=== PATIENT | male | born 1965 | race African-American/Black ===

== ENCOUNTER 2022-01-07 09:48 | Inpatient (IN) | payer OTHER ==
[2022-01-07 10:44] VITALS: BMI 27.5
[2022-01-07] MEDS ORDERED: MAGNESIUM HYDROX 2400MG/30ML ORAL SUSPENSION 30 ML CUP PO PRN (11:21)
[2022-01-07] MEDS ORDERED: ACETAMINOPHEN 325 MG TABLET (FP) PO PRN ×2 (11:21)
[2022-01-07] MEDS ORDERED: MAGNESIUM CITRATE 300 ML BOTTLE PO PRN (11:21)
[2022-01-07] MEDS ORDERED: MENTHOL/PHENOL 1 EACH UD MM PRN (11:21)
[2022-01-07] MEDS ORDERED: MAG HYDROX/AL HYDROX/SIMETH 30 ML UNIT-DOSE CUP PO PRN (11:21)
[2022-01-07] MEDS ORDERED: ONDANSETRON *ODT* 4 MG TABLET SL PRN (11:21)
[2022-01-07] MEDS ORDERED: IBUPROFEN 400 MG TABLET (FP) PO PRN (11:21)
[2022-01-07] MEDS ORDERED: BISMUTH SUBSALICYLATE 262 MG/15 ML BTL PO PRN (11:21)
[2022-01-07] MEDS ORDERED: METHOCARBAMOL 500 MG TABLET PO PRN (11:21)
[2022-01-07] MEDS: NICOTINE 14 MG/24 HOURS TOPICAL PATCH TD SCH (12:55)
[2022-01-07] MEDS: PRENATAL VITAMINS W/ FOLIC ACID TABLET (FP) PO SCH (12:55)
[2022-01-07 14:03] LABS: MCH 32.6 pg (25.7-33.7); MCHC 33.4 g/dl (32.0-35.9); MEAN CELL VOLUME 97.8 fl (80-96); MEAN PLT VOLUME 8.3 fl (7.5-11.1); PLATELET COUNT 168 10^3/uL (134-434); RBC 3.99 M/mm3 (4.00-5.60); RDW 14.7 % (11.9-15.9); WHITE BLOOD COUNT 4.5 K/mm3 (4.0-10.0)
[2022-01-07 14:09] LABS: BLOOD UREA NITROGEN 14.7 mg/dL (7-18)
[2022-01-07 14:13] LABS: CREATININE 1.3 mg/dL (0.55-1.3); TOT PROT 6.8 g/dl (6.4-8.2)
[2022-01-07] MEDS: hydrOXYzine PAMOATE 25 MG CAPSULE (FP) PO SCH ×3 (15:13→22:58)
[2022-01-07] MEDS: MELATONIN 5 MG TABLETS PO SCH (22:57)
[2022-01-07] MEDS: THIAMINE HCL 100 MG TABLET (FP) PO SCH (22:57)
[2022-01-08] MEDS: hydrOXYzine PAMOATE 25 MG CAPSULE (FP) PO SCH ×5 (06:35→22:27)
[2022-01-08] MEDS ORDERED: diazePAM 5 MG TABLET PO PRN (09:55)
[2022-01-08] MEDS: PRENATAL VITAMINS W/ FOLIC ACID TABLET (FP) PO SCH (10:30)
[2022-01-08] MEDS: NICOTINE 14 MG/24 HOURS TOPICAL PATCH TD SCH (10:31)
[2022-01-08] MEDS: BUPRENORPHINE/NALOXONE 8 MG/2 MG FILM PACKET SL SCH ×2 (10:32→22:39)
[2022-01-08] MEDS: diazePAM 5 MG TABLET PO SCH ×3 (10:33→22:27)
[2022-01-08] MEDS: MELATONIN 5 MG TABLETS PO SCH (22:27)
[2022-01-08] MEDS: THIAMINE HCL 100 MG TABLET (FP) PO SCH (22:27)
[2022-01-09] MEDS: hydrOXYzine PAMOATE 25 MG CAPSULE (FP) PO SCH ×5 (05:21→22:13)
[2022-01-09] MEDS: diazePAM 5 MG TABLET PO SCH ×4 (05:21→22:14)
[2022-01-09] MEDS: PRENATAL VITAMINS W/ FOLIC ACID TABLET (FP) PO SCH (10:33)
[2022-01-09] MEDS: BUPRENORPHINE/NALOXONE 8 MG/2 MG FILM PACKET SL SCH ×2 (10:33→22:14)
[2022-01-09] MEDS: NICOTINE 14 MG/24 HOURS TOPICAL PATCH TD SCH (13:49)
[2022-01-09] MEDS: NICOTINE 10 MG CARTRIDGE (INHALER) IH PRN (14:55)
[2022-01-09] MEDS: MELATONIN 5 MG TABLETS PO SCH (22:13)
[2022-01-09] MEDS: THIAMINE HCL 100 MG TABLET (FP) PO SCH (22:13)
[2022-01-10] MEDS: diazePAM 5 MG TABLET PO SCH ×3 (05:20→23:13)
[2022-01-10] MEDS: hydrOXYzine PAMOATE 25 MG CAPSULE (FP) PO SCH ×5 (05:20→23:14)
[2022-01-10] MEDS: BUPRENORPHINE/NALOXONE 8 MG/2 MG FILM PACKET SL SCH ×2 (10:35→23:12)
[2022-01-10] MEDS: PRENATAL VITAMINS W/ FOLIC ACID TABLET (FP) PO SCH (10:35)
[2022-01-10] MEDS: NICOTINE 10 MG CARTRIDGE (INHALER) IH PRN ×2 (10:37→18:14)
[2022-01-10] MEDS: NICOTINE 14 MG/24 HOURS TOPICAL PATCH TD SCH (10:51)
[2022-01-10] MEDS ORDERED: MIRTAZAPINE 15 MG TABLET (FP) PO SCH (22:00)
[2022-01-10] MEDS: THIAMINE HCL 100 MG TABLET (FP) PO SCH (23:13)
[2022-01-10] MEDS: MELATONIN 5 MG TABLETS PO SCH (23:14)
[2022-01-11] MEDS ORDERED: diazePAM 5 MG TABLET PO SCH (06:00)
[2022-01-11] MEDS: hydrOXYzine PAMOATE 25 MG CAPSULE (FP) PO SCH ×2 (06:22→10:47)
[2022-01-11 08:49] VITALS: BP 130/72; PULSE 81; TEMP 97.2
[2022-01-11] MEDS ORDERED: MODERNA COVID-19 VACC,MRNA/PF 50 MCG/0.25 ML EACH IM ONE (09:41)
[2022-01-11] MEDS: PRENATAL VITAMINS W/ FOLIC ACID TABLET (FP) PO SCH (10:47)
[2022-01-11] MEDS: BUPRENORPHINE/NALOXONE 8 MG/2 MG FILM PACKET SL SCH (10:48)
[2022-01-11] MEDS: NICOTINE 14 MG/24 HOURS TOPICAL PATCH TD SCH (10:48)
[2022-01-11] MEDS ORDERED: MODERNA COVID-19 VACC,MRNA/PF 100 MCG/0.5 ML IM ONE (12:00)
[2022-01-12] MEDS ORDERED: diazePAM 5 MG TABLET PO ONE (06:00)
[2022-01-12 14:11] LABS: SARS-CoV-2 NAA Not Detected (Not Detected)
== END 2022-01-11 11:47 | disposition home or self-care (01) | DRG 897 ==
LOC: YASAS 09:48 → UNDOADMIN 11:50 → Y3N 11:50
PROVIDERS: ADMIT Allergy & Immunology; ATTEND Allergy & Immunology
PROC: HZ2ZZZZ Detoxification Services for Substance Abuse Treatment (ICD-10-PCS; principal; 2022-01-07)
DX: F11.23 Opioid dependence with withdrawal (principal); F14.20 Cocaine dependence, uncomplicated; F13.230 Sedative, hypnotic or anxiolytic dependence with withdrawal, uncomplicated; F17.210 Nicotine dependence, cigarettes, uncomplicated; F19.24 Other psychoactive substance dependence with psychoactive substance-induced mood disorder; F32.A Depression, unspecified; G47.00 Insomnia, unspecified
CPT/HCPCS: 0012A; 36415; 71045-TC-FY; 80053; 85027; 86780; 91301; 93005; 93010; C9803; U0003; U0005

== ENCOUNTER 2024-03-21 09:31 | Emergency (ER) | payer OTHER ==
[2024-03-21 09:40] VITALS: BP 129/86; PULSE 62; RESP 18; TEMP 98.4; BMI 27.8
[2024-03-21] MEDS ORDERED: KETOROLAC TROMETHAMINE 30 MG/1 ML VIAL ONE (10:03)
[2024-03-21] MEDS ORDERED: ACETAMINOPHEN 500 MG TABLET (FP) ONE (10:03)
[2024-03-21] MEDS: KETOROLAC TROMETHAMINE 30 MG/1 ML VIAL IM ONE (10:10)
[2024-03-21] MEDS: ACETAMINOPHEN 500 MG TABLET (FP) PO ONE (10:10)
== END 2024-03-21 10:14 | disposition home or self-care (01) ==
LOC: JERFT 09:31 → JER 09:31 → JERFT 10:14
PROC: 3E0233Z Introduction of Anti-inflammatory into Muscle, Percutaneous Approach (ICD-10-PCS; principal; 2024-03-21)
DX: M25.562 Pain in left knee (principal); M25.462 Effusion, left knee
CPT/HCPCS: 99284-25

== ENCOUNTER 2024-10-02 00:09 | Inpatient (IN) | payer OTHER ==
[2024-10-02 00:54] LABS: BASO % 0.6 % (0-2.0); HEMATOCRIT 42.8 % (35.4-49); HEMOGLOBIN 14.4 GM/dL (11.7-16.9); LYMPH % 5.9 % (8-40); MCH 32.3 pg (25.7-33.7); MCHC 33.6 g/dl (32.0-35.9); MEAN CELL VOLUME 96.2 fl (80-96); MEAN PLT VOLUME 8.1 fl (7.5-11.1); NEUT % 87.5 % (42.8-82.8); PLATELET COUNT 173 10^3/uL (134-434); RBC 4.45 M/mm3 (4.00-5.60); WHITE BLOOD COUNT 13.9 K/mm3 (4.0-10.0)
[2024-10-02] MEDS ORDERED: ACETAMINOPHEN INJECTION 100 ML ONE (00:56)
[2024-10-02] MEDS: ACETAMINOPHEN 1000 MG/100 ML BAG IVPB ONE (01:02)
[2024-10-02 01:12] LABS: POTASSIUM 4.1 mmol/L (3.5-5.1)
[2024-10-02 01:14] LABS: CALCIUM 9.2 mg/dL (8.5-10.1)
[2024-10-02 01:15] LABS: ALBUMIN 3.9 g/dl (3.4-5.0); MAGNESIUM 1.9 mg/dL (1.8-2.4)
[2024-10-02 01:18] LABS: CREATININE 1.5 mg/dL (0.55-1.3)
[2024-10-02 01:19] LABS: TOT PROT 6.8 g/dl (6.4-8.2)
[2024-10-02 01:41] LABS: INR 1.07 (0.83-1.09); PROTHROMBIN TIME (PATIENT) 12.1 SEC (9.7-13.0)
[2024-10-02 01:44] LABS: ACTIVATED PTT 30.3 SECONDS (25.2-36.5)
[2024-10-02 02:27] LABS: HIV INTERPRETATION NEGATIVE (NEGATIVE)
[2024-10-02] MEDS ORDERED: CEFTRIAXONE 1 GM/50 ML BAG ONE (03:20)
[2024-10-02] MEDS ORDERED: KETOROLAC TROMETHAMINE 15 MG/ML VIAL ONE (03:20)
[2024-10-02] MEDS ORDERED: AZITHROMYCIN IVPB 500 MG/250 ML BAG IVPB ONE (03:21)
[2024-10-02] MEDS: CEFTRIAXONE 1,000 MG in DEXTROSE 5%-WATER - 50 ML IVPB ONE (03:34)
[2024-10-02] MEDS: KETOROLAC TROMETHAMINE 15 MG/ML VIAL IVPUSH ONE (03:34)
[2024-10-02] MEDS: AZITHROMYCIN IVPB 500 MG in DEXTROSE 5%-WATER - 250 ML IVPB ONE (03:56)
[2024-10-02] MEDS: SODIUM CHLORIDE 0.9% 500 ML INFUS.BAG IV ONE (06:37)
[2024-10-02 06:58] LABS: HEMATOCRIT 42.2 % (35.4-49); HEMOGLOBIN 13.8 GM/dL (11.7-16.9); MCH 32.1 pg (25.7-33.7); MCHC 32.7 g/dl (32.0-35.9); MEAN CELL VOLUME 98.1 fl (80-96); MEAN PLT VOLUME 8.5 fl (7.5-11.1); PLATELET COUNT 162 10^3/uL (134-434); RBC 4.31 M/mm3 (4.00-5.60); RDW 12.8 % (11.9-15.9); WHITE BLOOD COUNT 16.3 K/mm3 (4.0-10.0)
[2024-10-02 07:09] LABS: POTASSIUM 4.2 mmol/L (3.5-5.1)
[2024-10-02 07:12] LABS: ALBUMIN 3.6 g/dl (3.4-5.0); BLOOD UREA NITROGEN 13.4 mg/dL (7-18); CALCIUM 9.1 mg/dL (8.5-10.1)
[2024-10-02 07:15] LABS: CREATININE 1.2 mg/dL (0.55-1.3)
[2024-10-02 07:17] LABS: BILIRUBIN,TOTAL 1.2 mg/dL (0.2-1); TOT PROT 6.3 g/dl (6.4-8.2)
[2024-10-02 09:29] LABS: PH,URINE 5.5 (5.0-8.0); URINE APPEARANCE CLEAR; URINE BILIRUBIN NEGATIVE (NEGATIVE); URINE COLOR ORANGE; URINE GLUCOSE (UA) NEGATIVE (NEGATIVE); URINE KETONE NEGATIVE (NEGATIVE); URINE LEUK ESTERASE NEGATIVE (NEGATIVE); URINE NITRITE NEGATIVE (NEGATIVE); URINE PROTEIN NEGATIVE (NEGATIVE)
[2024-10-02 09:39] LABS: COCAINE, UR NEGATIVE (NEGATIVE); METHADONE, UR NEGATIVE (NEGATIVE); URINE AMPHETAMINES NEGATIVE (NEGATIVE); URINE BARBITURATES NEGATIVE (NEGATIVE)
[2024-10-02 09:40] LABS: PHENCYCLIDINE,URINE NEGATIVE (NEGATIVE)
[2024-10-02 09:55] LABS: OPIATES, URI POSITIVE (NEGATIVE); URINE BENZODIAZEPINES NEGATIVE (NEGATIVE)
[2024-10-02] MEDS ORDERED: BUPRENORPHINE/NALOXONE 8 MG/2 MG FILM PACKET ONE (10:09)
[2024-10-02] MEDS ORDERED: HEPARIN NA (PORCINE) 5,000 UNITS/ML 1ML VIAL ONE (10:10)
[2024-10-02] MEDS ORDERED: TOPIRAMATE 25 MG TABLET ONE (10:10)
[2024-10-02] MEDS: TOPIRAMATE 25 MG TABLET PO SCH (10:15)
[2024-10-02] MEDS: HEPARIN NA (PORCINE) 5,000 UNITS/ML 1ML VIAL SQ SCH (10:15)
[2024-10-02] MEDS: BUPRENORPHINE/NALOXONE 8 MG/2 MG FILM PACKET SL SCH (10:15)
[2024-10-02 14:59] VITALS: BMI 27.2
[2024-10-03] MEDS: CEFTRIAXONE 1 G/50 ML PREMIX 50 ML IVPB SCH (04:21)
[2024-10-03] MEDS: AZITHROMYCIN IVPB 500 MG/250 ML BAG IVPB SCH (05:30)
[2024-10-03] MEDS: ALBUTEROL SO4 2.5/IPRATROPIUM 0.5 INH SOL 3 ML VIAL.NEB. NEB ONE (05:34)
[2024-10-03 07:14] LABS: POTASSIUM 4.2 mmol/L (3.5-5.1)
[2024-10-03 07:20] LABS: CALCIUM 9.2 mg/dL (8.5-10.1)
[2024-10-03 07:21] LABS: BLOOD UREA NITROGEN 12.3 mg/dL (7-18)
[2024-10-03 07:24] LABS: CREATININE 1.2 mg/dL (0.55-1.3)
[2024-10-03 07:38] LABS: BASO % 0.1 % (0-2.0); EOS % 0.1 % (0-4.5); HEMATOCRIT 39.8 % (35.4-49); LYMPH % 15.6 % (8-40); MCHC 32.6 g/dl (32.0-35.9); MEAN CELL VOLUME 98.4 fl (80-96); MEAN PLT VOLUME 8.9 fl (7.5-11.1); MONO % 7.3 % (3.8-10.2); NEUT % 76.9 % (42.8-82.8); PLATELET COUNT 150 10^3/uL (134-434); RBC 4.04 M/mm3 (4.00-5.60); RDW 12.6 % (11.9-15.9)
[2024-10-03] MEDS: ACETAMINOPHEN 1000 MG/100 ML BAG IVPB PRN (10:03)
[2024-10-03] MEDS: guaiFENesin 200 MG/10 ML 10 ML UNIT-DOSE CUPS PO PRN (11:43)
[2024-10-03] MEDS: PIPERACILLIN/TAZOB 4.5 GM 4.5 GM in DEXTROSE 5%-WATER 100 ML IVPB SCH (12:04)
[2024-10-04 07:56] LABS: BASO % 0.2 % (0-2.0); EOS % 0.4 % (0-4.5); HEMATOCRIT 41.1 % (35.4-49); HEMOGLOBIN 13.4 GM/dL (11.7-16.9); MCH 31.9 pg (25.7-33.7); MCHC 32.7 g/dl (32.0-35.9); MEAN CELL VOLUME 97.7 fl (80-96); MEAN PLT VOLUME 8.5 fl (7.5-11.1); MONO % 8.3 % (3.8-10.2); NEUT % 67.1 % (42.8-82.8); PLATELET COUNT 182 10^3/uL (134-434); RBC 4.21 M/mm3 (4.00-5.60); RDW 12.6 % (11.9-15.9); WHITE BLOOD COUNT 10.3 K/mm3 (4.0-10.0)
[2024-10-04 08:08] LABS: POTASSIUM 4.1 mmol/L (3.5-5.1)
[2024-10-04 08:11] LABS: BLOOD UREA NITROGEN 10.9 mg/dL (7-18)
[2024-10-04 08:14] LABS: CREATININE 1.3 mg/dL (0.55-1.3)
[2024-10-04] MEDS: LIDOCAINE 5% TOPICAL PATCH TP SCH (14:07)
[2024-10-04 15:08] VITALS: BP 102/69; PULSE 63; RESP 18; TEMP 98.4
[2024-10-04] MEDS ORDERED: LIDOCAINE PATCH REMOVAL MC SCH (22:00)
== END 2024-10-04 17:37 | disposition home or self-care (01) | DRG 194 ==
LOC: JER 00:09 → JERBED 03:07 → J4W 12:48
PROVIDERS: ADMIT Internal Medicine; ATTEND Internal Medicine
DX: J18.9 Pneumonia, unspecified organism (principal); F11.20 Opioid dependence, uncomplicated; I24.89 Other forms of acute ischemic heart disease; R06.02 Shortness of breath; M54.2 Cervicalgia; R07.9 Chest pain, unspecified; D72.829 Elevated white blood cell count, unspecified; F41.8 Other specified anxiety disorders; R09.02 Hypoxemia; M17.12 Unilateral primary osteoarthritis, left knee
CPT/HCPCS: 0241U-QW; 36415; 71045-TC-FY; 76775-TC; 80048; 80053; 80307; 81003; 83605; 83735; 84484; 84550; 85025; 85027; 85610; 85730; 86803; 87040; 87070; 87086; 87205; 87389; 87899; 93005; 93010; 93971-TC; 94640; 99285-25; J0131; J1644